=== PATIENT | female | born 1975 | race Two or more races ===

== ENCOUNTER → 2024-12-17 | Emergency (ER) | payer OTHER | END | disposition home or self-care (01) | LOC: ER 11:28 | DX: N93.9 Abnormal uterine and vaginal bleeding, unspecified (principal); N83.202 Unspecified ovarian cyst, left side; N83.201 Unspecified ovarian cyst, right side; R10.30 Lower abdominal pain, unspecified | CPT/HCPCS: 36415; 76830; 96365; 96372; 99284; J2270; J3490 ==